=== PATIENT | male | born 1980 | race Caucasian/White ===

== ENCOUNTER 2016-08-16 21:43 | Emergency (ER) | payer SELFPAY ==
--- NOTE | 2016-08-16 22:00 | EDM.PDOC ---
ED HPI Skin/Rash - General Chief Complaint: Skin Complaint Stated Complaint: POSS RASH Time Seen by Provider: 08/16/16 21:50 - History of Present Illness INITIAL COMMENTS - FREE TEXT/NARRATIVE: 36-year-old male presents emergency room with a couple complaints. First one is he is developing a boil on his right Buttocks. This has been getting more tender over the last several days he had a smaller lesion on his anterior chest that is resolving on its own. Patient has had problems with these in the past usually in very in areas the patient is been taking cephalexin on an as needed basis for the last 10 years they are not working anymore. The patient gets these at various places at one point he was scheduled for surgery for one however it drained spontaneously on its own. The patient has no local physician as he does not need to go to the doctor. Complaint #2 is he is having a worsening hemorrhoid. Patient denies any constipation. This is been acting up for the last 4 or 5 days - Related Data Allergies Allergy/AdvReac Type Severity Reaction Status Date / Time No Known Allergies Allergy Verified 09/24/13 14:49 Home Meds: Ambulatory Orders Medication Instructions Recorded Confirmed Hydrocortisone [Anusol-HC] 30 gm RC TID #1 cream..g. 08/16/16 Sulfamethoxazole/Trimethoprim 1 each PO BID #14 tablet 08/16/16 [Bactrim Ds Tablet] Past Medical History - Past Health History Medical/Surgical History: Denies Medical/Surgical History Social & Family History - Tobacco Use Years of Tobacco use: 15 - Alcohol Use Days Per Week of Alcohol Use: 2 Number of Drinks Per Day: 5 Total Drinks Per Week: 10 - Recreational Drug Use Recreational Drug Use: No ED ROS GENERAL - Review of Systems Review Of Systems: See Below Constitutional: Reports: no symptoms Respiratory: Reports: No Symptoms Cardiovascular: Reports: No symptoms GI/Abdominal: Reports: No symptoms : Reports: no symptoms ED EXAM, SKIN/RASH Exam: See Below Exam Limited By: No limitations General Appearance: alert, no apparent distress Respiratory/Chest: lungs clear, normal breath sounds, no accessory muscle use Cardiovascular: regular rate, rhythm, no edema, no murmur GI/Abdominal: normal bowel sounds, soft, non tender Rectal (Males) Exam: Other (Patient has a left-sided external hemorrhoid that is quite tender nonthrombosed at this time rectal exam is otherwise unremarkable no fissures or internal hemorrhoids noted) Back Exam: normal inspection. No: CVA tenderness (L), CVA tenderness (R) Skin: Other (Patient a healing lesion on his lower anterior chest. On his right buttocks he has an area of fullness and tenderness mild erythema and warmth no fluctuation at this time. This does not involve the gluteal fold.) Course - Vital Signs Last Recorded V/S: Last Vital Signs Temp 36.8 C 08/16/16 21:53 Pulse 81 08/16/16 21:53 Resp 16 08/16/16 21:53 BP 128/81 08/16/16 21:53 Pulse Ox 97 08/16/16 21:53 - Orders/Labs/Meds Orders: Active Orders 24 hr Category Date Time Status Hemoccult [OCCULT BLOOD DIAGNOSTIC] [OP] Stat Lab 08/16/16 22:24 Uncollected Meds: Medications Discontinued Medications Generic Name Dose Route Start Last Admin Trade Name Freq PRN Reason Stop Dose Admin Trimethoprim/Sulfamethoxazole 1 tab 08/16/16 22:11 08/16/16 22:16 Septra Ds PO 08/16/16 22:12 1 tab ONETIME ONE Administration - Re-Assessments/Exams Free Text/Narrative Re-Assessment/Exam: 08/16/16 22:30 The patient has 2 processes going on at this time he has an external hemorrhoid and he has what could develop into a abscess on his buttocks. He's been on chronic cephalexin. This will be changed to Bactrim DS at this point for 7 days. He'll be started on Anusol HC for his hemorrhoid. He is strongly advised to followup in the clinic. Departure - Departure Time of Disposition: 22:07 Disposition: Home, Self-Care 01 Clinical Impression: Abscess of right buttock, External hemorrhoid Prescriptions: Hydrocortisone [Anusol-HC] 30 gm RC TID #1 cream..g. Sulfamethoxazole/Trimethoprim [Bactrim Ds Tablet] 1 each PO BID #14 tablet Referrals: PCP,None [Primary Care Provider] - Forms: ED Department Discharge Additional Instructions: Return to emergency room with any questions or problems. You to start on Bactrim DS this is an antibiotic take one twice daily until gone he did received your first dose in the emergency room. Maury pick up driver an [id number] hemorrhoid preparation and try this. Tomorrow pick up driver the prescription for the Anusol HC. This is a topical strong hemorrhoid preparation apply this 3 times a day for 10 days. Either sitz baths or warm moist heat to both areas for 20 minutes every couple hours while you're awake. Followup in the hospital clinic in 3 days for recheck. [phone] - My Orders Last 24 Hours: My Active Orders 08/16/16 22:24 Hemoccult [OCCULT BLOOD DIAGNOSTIC] [OP] Stat - Assessment/Plan Last 24 Hours: My Active Orders 08/16/16 22:24 Hemoccult [OCCULT BLOOD DIAGNOSTIC] [OP] Stat
[2016-08-16 22:04] VITALS: BP 128/81
[2016-08-16] MEDS ORDERED: Sulfamethoxazole/Trimethoprim 800-160 MG Tab PO ONE (22:11)
== END 2016-08-16 22:31 | disposition home or self-care (01) ==
LOC: JD.ED 21:43
DX: L02.31 Cutaneous abscess of buttock (principal); K64.4 Residual hemorrhoidal skin tags
CPT/HCPCS: 82270; 99283; A9270

== ENCOUNTER 2022-01-12 10:16 | Emergency (ER) | payer SELFPAY | END 2022-01-12 13:30 | LOC: JD.ED 10:16 | DX: Z53.21 Procedure and treatment not carried out due to patient leaving prior to being seen by health care provider (principal) ==

== ENCOUNTER 2022-01-13 07:34 | Emergency (ER) | payer OTHER ==
[2022-01-13] MEDS ORDERED: Sodium Chloride 0.9% 10 ML Syringe FLUSH PRN (07:48)
[2022-01-13] MEDS ORDERED: cefTRIAXone 2 GM in Sodium Chloride 0.9% 100 ML IV ONE (07:49)
[2022-01-13] MEDS ORDERED: Diphtheria,Pertussis(Acell),Tetanus Vaccine 0.5 ML Syringe IM ONE (07:50)
[2022-01-13 07:51] VITALS: BP 136/89; PULSE 75
[2022-01-13] MEDS ORDERED: HYDROmorphone 1 MG/ML Syringe IVPUSH ONE (09:16)
== END 2022-01-13 09:47 | disposition home or self-care (01) ==
LOC: JD.ED 07:34
DX: S61.212A Laceration without foreign body of right middle finger without damage to nail, initial encounter (principal); L08.9 Local infection of the skin and subcutaneous tissue, unspecified; F17.210 Nicotine dependence, cigarettes, uncomplicated; Z23 Encounter for immunization; W26.8XXA Contact with other sharp object(s), not elsewhere classified, initial encounter
CPT/HCPCS: 36415; 73140; 85025; 86140; 90471; 90715; 96365; 96375; 99283; J0696; J1170; J3490